=== PATIENT | female | born 1960 | race Caucasian/White ===

== ENCOUNTER 2019-05-24 09:12 | Day surgery (SDC) | payer OTHER ==
[~2019-05-24 09:12] MED LIST: BUPIVACAINE HCL 0.75% INJ/PF (7.5 MG/1 ML) 10 ML SDV OD PRN; CHONDR SU A NA/HYALUR INTRAOC KIT (SURGICARE) ONE; EPINEPHRINE INJ/PF 1 MG/1 ML AMPULE ONE; KETOROLAC TROMETHAMINE 0.45% 4 DROP/0.4 ML DROPERETTE OD PRN; LIDOCAINE 1% INJ-PF (10 MG/ML) 30 ML SDV ONE; LIDOCAINE 4% INJ/PF (40 MG/ML) 5 ML AMPUL OD PRN
[2019-05-24] MEDS ORDERED: MIDAZOLAM 2 MG/2 ML INJ ONE (09:36)
[2019-05-24] MEDS: TETRACAINE HCL 0.5% OPH SOLN 4 ML OD PRN ×3 (10:30→11:08)
[2019-05-24] MEDS: CYCLOPENTOLATE 0.2%/PHENYLEPHRINE 1% OPH SOLN 2 ML OD PRN ×3 (10:30→10:50)
[2019-05-24] MEDS: BESIFLOXACIN HCL 0.6% OPH SUSP 5 ML BOTTLE OD PRN ×4 (10:30→11:32)
[2019-05-24] MEDS: TROPICAMIDE 1% OPH SOLN 15 ML OD PRN ×3 (10:30→10:50)
[2019-05-24] MEDS: DORZOLAMIDE HCL 2%/TIMOLOL MALEAT 0.5% OPH SOLN 10 ML OD PRN ×2 (11:32)
--- NOTE | 2019-05-24 14:55 | Operative Report ---
Operative Report-[facility] Operative Report: DATE OF SURGERY: 05/24/2019 PREOPERATIVE DIAGNOSIS: CATARACT, RIGHT EYE. POSTOPERATIVE DIAGNOSIS: CATARACT, RIGHT EYE. PROCEDURE PERFORMED: PHACOEMULSIFICATION WITH POSTERIOR CHAMBER INTRAOCULAR LENS, RIGHT EYE. Intraocular Lens Model : ZCBOO 17.5 Total Phaco Time: 12.05 CDE SURGEON: MADELINE CALZADA MD ANESTHESIA: TOPICAL WITH MAC. INDICATIONS FOR SURGERY: Difficulty reading road signs and watching TV. PROCEDURE: The patient was brought to the Operating Room and placed on the operative table. Following tetracaine drops, topical anesthesia was administered. This consisted of instrument wipe pledgets soaked in a solution of 4% Xylocaine mixed with 0.75% Marcaine in a 1:2 ratio. A 2 x 1 cm pledget was placed in the superior fornix. A 1 x 1 cm pledget was placed in the inferior fornix. The eye was patched shut for 5 minutes. The patch was removed. The eye was sterilely prepped and draped in the usual manner. Lid speculum was placed in the eye. The pledgets were removed. 4-0 black silk sutures were placed around the superior and the inferior rectus muscles to be used as traction. A conjunctival peritomy was made at the 10 o'clock position. Hemostasis was obtained with bipolar cautery. A posterior limbal groove was created using a crescent knife and dissected anteriorly towards the cornea. A sharp point blade was used to create a paracentesis site at the 2 o'clock position. 0.2 cc non preserved Lidocaine was injected into the anterior chamber. A 2.4 mm keratome was used to enter the anterior chamber through the groove. Viscoelastic was injected into the anterior chamber. An anterior capsulotomy was performed using Utrata forceps in a capsulorrhexis fashion. Hydrodissection and hydrodelineation were performed. Phacoemulsification was performed in [id number] technique. Following this, the I/A unit was used to remove residual cortex. Viscoelastic was injected into the capsular bag. The Intraocular lens was placed in the capsular bag. The I/A unit was used to remove residual viscoelastic. The wound was seen to be watertight under high and low pressure, and no sutures were placed. The intraocular lens was well centered. The pressure was adjusted in the eye to normal pressure. The 4-0 black silk sutures and lid speculum were removed. The eye was shielded after Besivance and Cosopt drops were placed. The patient tolerated the procedure well and was sent to the Recovery Room in good condition.
== END 2019-05-24 12:17 | disposition home or self-care (01) ==
LOC: SC 09:12
PROVIDERS: ATTEND Ophthalmology
DX: H25.811 Combined forms of age-related cataract, right eye (principal)
CPT/HCPCS: 66984; V2632; J2250; J3490 ×5; J0171

== ENCOUNTER → 2019-07-14 | Day surgery (SDC) | payer OTHER ==
[~2019-07-14] MED LIST changes: -BUPIVACAINE HCL 0.75% INJ/PF (7.5 MG/1 ML) 10 ML SDV OD PRN; +BUPIVACAINE HCL 0.75% INJ/PF (7.5 MG/1 ML) 10 ML SDV OS PRN; +FENTANYL CITRATE INJ/PF 100 MCG/2 ML AMPUL ONE; -KETOROLAC TROMETHAMINE 0.45% 4 DROP/0.4 ML DROPERETTE OD PRN; +KETOROLAC TROMETHAMINE 0.45% 4 DROP/0.4 ML DROPERETTE OS PRN; -LIDOCAINE 4% INJ/PF (40 MG/ML) 5 ML AMPUL OD PRN; +LIDOCAINE 4% INJ/PF (40 MG/ML) 5 ML AMPUL OS PRN; +MIDAZOLAM 2 MG/2 ML INJ ONE
[2019-07-14] MEDS: TETRACAINE HCL 0.5% OPH SOLN 4 ML OS PRN ×2 (09:08→09:39)
[2019-07-14] MEDS: CYCLOPENTOLATE 0.2%/PHENYLEPHRINE 1% OPH SOLN 2 ML OS PRN ×3 (09:09→09:35)
[2019-07-14] MEDS: BESIFLOXACIN HCL 0.6% OPH SUSP 5 ML BOTTLE OS PRN ×4 (09:09→10:15)
[2019-07-14] MEDS: TROPICAMIDE 1% OPH SOLN 15 ML OS PRN ×3 (09:09→09:35)
[2019-07-14] MEDS: DORZOLAMIDE HCL 2%/TIMOLOL MALEAT 0.5% OPH SOLN 10 ML OS PRN ×2 (10:15)
--- NOTE | 2019-07-14 12:01 | Operative Report ---
Operative Report-[facility] Operative Report: DATE OF SURGERY: 07/14/2019 PREOPERATIVE DIAGNOSIS: CATARACT, LEFT EYE. POSTOPERATIVE DIAGNOSIS: CATARACT, LEFT EYE. PROCEDURE PERFORMED: PHACOEMULSIFICATION WITH POSTERIOR CHAMBER INTRAOCULAR LENS, LEFT EYE. Intraocular Lens Model : ZCBOO 19.0 Total Phaco Time: 8.22 CDE SURGEON: MADELINE CALZADA MD ANESTHESIA: TOPICAL WITH MAC. INDICATIONS FOR SURGERY: Difficultly driving at night PROCEDURE: The patient was brought to the Operating Room and placed on the operative table. Following tetracaine drops, topical anesthesia was administered. This consisted of instrument wipe pledgets soaked in a solution of 4% Xylocaine mixed with 0.75% Marcaine in a 1:2 ratio. A 2 x 1 cm pledget was placed in the superior fornix. A 1 x 1 cm pledget was placed in the inferior fornix. The eye was patched shut for 5 minutes. The patch was removed. The eye was sterilely prepped and draped in the usual manner. Lid speculum was placed in the eye. The pledgets were removed. 4-0 black silk sutures were placed around the superior and the inferior rectus muscles to be used as traction. A conjunctival peritomy was made at the 10 o'clock position. Hemostasis was obtained with bipolar cautery. A posterior limbal groove was created using a crescent knife and dissected anteriorly towards the cornea. A sharp point blade was used to create a paracentesis site at the 2 o'clock position. 0.2 cc non preserved Lidocaine was injected into the anterior chamber. A 2.4 mm keratome was used to enter the anterior chamber through the groove. Viscoelastic was injected into the anterior chamber. An anterior capsulotomy was performed using Utrata forceps in a capsulorrhexis fashion. Hydrodissection and hydrodelineation were performed. Phacoemulsification was performed in [id number] technique. Following this, the I/A unit was used to remove residual cortex. Viscoelastic was injected into the capsular bag. The Intraocular lens was placed in the capsular bag. The I/A unit was used to remove residual viscoelastic. The wound was seen to be watertight under high and low pressure, and no sutures were placed. The intraocular lens was well centered. The pressure was adjusted in the eye to normal pressure. The 4-0 black silk sutures and lid speculum were removed. The eye was shielded after Besivance,prednisolone, and Cosopt drops were placed. The patient tolerated the procedure well and was sent to the Recovery Room in good condition.
== END ==
LOC: SC 08:01
PROVIDERS: ATTEND Ophthalmology
DX: H25.812 Combined forms of age-related cataract, left eye (principal); Z96.1 Presence of intraocular lens; H17.89 Other corneal scars and opacities; K21.9 Gastro-esophageal reflux disease without esophagitis; Z79.899 Other long term (current) drug therapy; E11.9 Type 2 diabetes mellitus without complications; Z88.8 Allergy status to other drugs, medicaments and biological substances
CPT/HCPCS: 66984; V2632; J2250; J3490 ×5; J0171; J3010

== ENCOUNTER 2020-07-14 13:04 | Emergency (ER) | payer OTHER ==
[2020-07-14 13:22] VITALS: BP 102/59
--- NOTE | 2020-07-14 13:30 | ER Document Report ---
ED Medical Screen (RME) - General Stated Complaint: CHEST PAIN Time Seen by Provider: 07/14/20 13:25 Primary Care Provider: LEONEL FRAGOSO MD [Primary Care Provider] - Follow up as needed Notes: HPI: 60-year-old female history of high cholesterol presenting for an episode of sharp chest pain in the left chest that occurred early this morning lasted several minutes then went away. No radiation into the back neck or arm. No shortness of breath with this. Has had intermittent pain previously several months ago but did not speak with her primary care provider about that. Had a gastric bypass in [place] in 2018 no abdominal pain nausea vomiting. Patient reports her last stress test was approximately 10 years ago. She is pain-free at this time PHYSICAL EXAMINATION: EKG normal sinus rhythm without ectopy. Lung sounds are clear to auscultation with regular rate and rhythm. I have greeted and performed a rapid initial assessment of this patient. A comprehensive ED assessment and evaluation of the patient, analysis of test r esults and completion of medical decision making process will be conducted by an additional ED providers. Please note that clinical decision making for this patient was made during the 2019 pandemic of novel coronavirus which caused a significant strain on the healthcare system including at this particular facility. Criteria for admission discharge and level of care decisions as well as treatment decisions have necessarily changed TRAVEL OUTSIDE OF THE [place] IN LAST 30 DAYS: No - Related Data Allergies/Adverse Reactions: NSAIDS (Non-Steroidal Anti-Inflamma Adverse Reaction (Intermediate, Verified 07/13/19 10:02) STOMACH ULCERS lansoprazole [Lansoprazole] Adverse Reaction (Unknown, Verified 07/12/19 13:27) simvastatin [From Zocor] Adverse Reaction (Unknown, Verified 07/12/19 13:27) MUSCLE PAIN Past Medical History - Past Medical History Cardiac Medical History: Denies: Hx Coronary Artery Disease - HIGH CHOLESTEROL, Hx Heart Attack, Hx Hypertension Pulmonary Medical History: Denies: Hx Asthma, Hx Bronchitis, Hx COPD, Hx Pneumonia Neurological Medical History: Denies: Hx Cerebrovascular Accident, Hx Seizures GI Medical History: Denies: Hx Hepatitis, Hx Hiatal Hernia, Hx Ulcer Musculoskeltal Medical History: Denies Hx Arthritis Infectious Medical History: Denies: Hx Hepatitis Past Surgical History: Denies: Hx Mastectomy, Hx Open Heart Surgery, Hx Pacemaker - Immunizations Hx Diphtheria, Pertussis, Tetanus Vaccination: Yes Physical Exam - Vital signs Vitals: Temp Pulse Resp BP Pulse Ox 97.7 F 73 18 102/59 L 100 07/14/20 13:20 07/14/20 13:20 07/14/20 13:20 07/14/20 13:20 07/14/20 13:20 Course - Vital Signs Vital signs: Temp Pulse Resp BP Pulse Ox 97.7 F 73 18 102/59 L 100 07/14/20 13:20 07/14/20 13:20 07/14/20 13:20 07/14/20 13:20 07/14/20 13:20 Doctor's Discharge - Discharge Referrals: LEONEL FRAGOSO MD [Primary Care Provider] - Follow up as needed
--- NOTE | 2020-07-14 14:20 | RADIOLOGY REPORT (SQ) ---
EXAM DESCRIPTION: CHEST SINGLE VIEW IMAGES COMPLETED DATE/TIME: 07/14/2020 12:55 pm REASON FOR STUDY: chest pain COMPARISON: None. EXAM PARAMETERS: NUMBER OF VIEWS: One view. TECHNIQUE: Single frontal radiographic view of the chest acquired. RADIATION DOSE: NA LIMITATIONS: None. FINDINGS: LUNGS AND PLEURA: No opacities, masses or pneumothorax. No pleural effusion. MEDIASTINUM AND HILAR STRUCTURES: No masses. Contour normal. HEART AND VASCULAR STRUCTURES: Heart normal in size. Normal vasculature. BONES: No acute findings. HARDWARE: None in the chest. OTHER: No other significant finding. IMPRESSION: NO ACUTE RADIOGRAPHIC FINDING IN THE CHEST. TECHNICAL DOCUMENTATION: JOB ID: [id number] 2010 [employer]- All Rights Reserved Reading location - IP/workstation name: [email or web address]
[2020-07-14 14:33] LABS: ABSOLUTE EOSINOPHILS # (AUTO) 0.1 10^3/uL (0.0-0.6); ABSOLUTE LYMPHOCYTES (AUTO) 2.8 10^3/uL (0.5-4.7); ABSOLUTE MONOCYTES (AUTO) 0.6 10^3/uL (0.1-1.4); ABSOLUTE NEUT (AUTO) 3.3 10^3/uL (1.7-8.2); BASOPHILS % (AUTO) 0.4 % (0-2); EOSINOPHILS % (AUTO) 1.5 % (0-6); HEMATOCRIT 41.5 % (36.0-47.0); HEMOGLOBIN 14.3 g/dL (12.0-15.5); MEAN CORPUSCULAR HEMOGLOBIN 31.1 pg (27.0-33.4); MEAN CORPUSCULAR HGB CONC 34.6 g/dL (32.0-36.0); MEAN CORPUSCULAR VOLUME 90 fl (80-97); MONOCYTES % (AUTO) 8.8 % (3-13); PLATELET COUNT 274 10^3/uL (150-450); RED BLOOD COUNT 4.61 10^6/uL (3.72-5.28); SEGMENTED NEUTROPHILS % (AUTO) 48.3 % (42-78); TOTAL CELLS COUNTED % (AUTO) 100 %; WHITE BLOOD COUNT 6.9 10^3/uL (4.0-10.5)
[2020-07-14 14:39] LABS: ALBUMIN 4.4 g/dL (3.5-5.0); ALKALINE PHOSPHATASE 69 U/L (38-126); ANION GAP 2 (5-19); ASPARTATE AMINO TRANSFERASE 30 U/L (14-36); BILIRUBIN,DIRECT 0.1 mg/dL (0.0-0.4); BILIRUBIN,TOTAL 0.6 mg/dL (0.2-1.3); BLOOD UREA NITROGEN 31 mg/dL (7-20); CALCIUM 10.5 mg/dL (8.4-10.2); CARBON DIOXIDE 34 mmol/L (22-30); CHLORIDE 98 mmol/L (98-107); GLUCOSE 99 mg/dL (75-110); POTASSIUM 4.8 mmol/L (3.6-5.0); TOTAL PROTEIN 7.2 g/dL (6.3-8.2)
--- NOTE | 2020-07-14 16:04 | ER Document Report ---
ED Cardiac - General Chief Complaint: Chest Pain Stated Complaint: CHEST PAIN Time Seen by Provider: 07/14/20 13:25 Primary Care Provider: DIEGO BRISCOE MD [ACTIVE STAFF] - Follow up in 3-5 days LEONEL FRAGOSO MD [Primary Care Provider] - Follow up in 3-5 days TRAVEL OUTSIDE OF THE [place] IN LAST 30 DAYS: No - HPI Notes: Patient is a 60-year-old female with a past medical history of gastric bypass surgery who presents with chest pain. Patient states that chest pain occurred this morning. It lasted for several minutes. She laid down and it felt better. It occurred when she was just walking around the house. She described it as a midsternal pressure. No radiation to her back. No pain in her arms or her jaw. She denies any shortness of breath or pleuritic pain. No nausea or vomiting. No abdominal pain. No cough or fevers. She states she was recently diagnosed with mono and still has some leftover fatigue. She mentions the same episode happened a year ago and she never mentioned to her PCP. Non-smoker. Currently, she is pain-free. No recent periods of immobility. No leg swelling. No history of PE or DVT. - Related Data Allergies/Adverse Reactions: NSAIDS (Non-Steroidal Anti-Inflamma Adverse Reaction (Intermediate, Verified 07/13/19 10:02) STOMACH ULCERS lansoprazole [Lansoprazole] Adverse Reaction (Unknown, Verified 07/12/19 13:27) simvastatin [From Zocor] Adverse Reaction (Unknown, Verified 07/12/19 13:27) MUSCLE PAIN Past Medical History - General Information source: Patient, Relative - Social History Smoking Status: Never Smoker Frequency of alcohol use: Rare Drug Abuse: None Family History: CAD - Past Medical History Cardiac Medical History: Denies: Hx Coronary Artery Disease - HIGH CHOLESTEROL, Hx Heart Attack, Hx Hypertension Pulmonary Medical History: Denies: Hx Asthma, Hx Bronchitis, Hx COPD, Hx Pneumonia Neurological Medical History: Denies: Hx Cerebrovascular Accident, Hx Seizures GI Medical History: Denies: Hx Hepatitis, Hx Hiatal Hernia, Hx Ulcer Musculoskeletal Medical History: Denies Hx Arthritis Infectious Medical History: Denies: Hx Hepatitis Past Surgical History: Denies: Hx Mastectomy, Hx Open Heart Surgery, Hx Pacemaker - Immunizations Hx Diphtheria, Pertussis, Tetanus Vaccination: Yes Review of Systems - Review of Systems Notes: CONSTITUTIONAL: No fever or weight loss. No fatigue. SKIN: No rash. HENT: No congestion, ear pain, or sore throat. CARDIOVASCULAR: No edema. Positive for chest pain that has resolved. RESPIRATORY: No cough, shortness of breath, congestion, or wheezing. GASTROINTESTINAL: No abdominal pain, nausea, vomiting, bloody stools or diarrhea. GENITOURINARY: No dysuria. MUSCULOSKELETAL: No joint pain or swelling. LYMPHATIC: No swollen glands. NEUROLOGIC: No seizures. No headache, focal weakness or sensory changes. HEMATOLOGIC: No unusual bruising or bleeding. PSYCHIATRIC: No depression or anxiety. Physical Exam - Vital signs Vitals: Temp Pulse Resp BP Pulse Ox 97.7 F 73 18 102/59 L 100 07/14/20 13:20 07/14/20 13:20 07/14/20 13:20 07/14/20 13:20 07/14/20 13:20 - General General appearance: Appears well In distress: None Notes: VITAL SIGNS: Within normal limits. GENERAL: No acute distress, non-toxic appearance. HEAD: Normal with no signs of head trauma. EYES: Conjunctiva normal, no discharge. EARS: Hearing grossly intact. NOSE: Normal. NECK: Normal range of motion, no tenderness, supple, no lymphadenopathy, No adenopathy, no JVD. CHEST: Clear breath sounds bilaterally. CARDIAC: Regular rate and rhythm. S1 and S2, without murmurs, gallops, or rubs. VASCULAR: No Edema. Strong radial pulses. ABDOMEN: Normal. MUSCULOSKELETAL: Good range of motion of all major joints. Extremities without clubbing, cyanosis or edema. NEUROLOGICAL: Alert and oriented x 3. No focal sensory or strength deficits. Speech normal. Follows commands appropriately. PSYCHIATRIC: Normal Affect, judgement and mood. SKIN: Normal appearance with no rashes or lesions. Course - Re-evaluation Re-evalutation: 07/14/20 16:03 Patient appears well on exam. She is pain-free. We will obtain 2 troponins and a cardiac work-up. Likely, she will be able to follow-up outpatient with cardiology and her PCP. She states that she is unable to take aspirin. Heart Score is 3. Patient had 2 - troponins. Her EKG is nondiagnostic. Patient is not having any pain. I gave her for cardiology follow-up. Patient is very agreeable to this. She was given strict return precautions. 07/14/20 23:45 - Vital Signs Vital signs: Temp Pulse Resp BP Pulse Ox 97.7 F 73 18 102/59 L 100 07/14/20 13:20 07/14/20 13:20 07/14/20 13:20 07/14/20 13:20 07/14/20 13:20 - Laboratory Results Result Diagrams: 07/14/20 14:00 07/14/20 14:00 Laboratory Results Interpreted: 07/14/20 14:00 Sodium 133.9 L Carbon Dioxide 34 H Anion Gap 2 L BUN 31 H Calcium 10.5 H Critical Laboratory Results Reviewed: No Critical Results - Radiology Results Critical Radiology Results Reviewed: No Critical Results - EKG Interpretation by Me EKG shows normal: Sinus rhythm Rate: Normal Rhythm: NSR When compared to previous EKG there are: Previous EKG unavailable Additional EKG results interpreted by me: 07/14/20 16:08 Sinus rhythm at a rate of 69. QTc 416. No acute ST changes. Previous EKG unavailable. Discharge - Discharge Clinical Impression: Chest pain Qualifiers: Chest pain type: other chest pain Qualified Code(s): R07.89 - Other chest pain Condition: Stable Disposition: HOME, SELF-CARE Additional Instructions: Your work-up today is reassuring. Please follow-up with your family doctor and cardiology. Return to the ER immediately for any return of symptoms, shortness of breath, nausea, any other concerning signs. Referrals: LEONEL FRAGOSO MD [Primary Care Provider] - Follow up in 3-5 days DIEGO BRISCOE MD [ACTIVE STAFF] - Follow up in 3-5 days
--- NOTE | 2020-07-14 22:24 | EKG REPORT ---
SEVERITY:- NORMAL ECG - SINUS RHYTHM : Confirmed by: Patrick Cervantes MD 14-Jul-2020 22:24:20
--- OUTSIDE RECORDS SUMMARY | 2020-07-17 10:33 | XMS REPORT ---
:1960 [facility] Address [facility] [address] [place] [id number] Care Team Providers Name Role Phone Yeyo NÚÑEZ Attending Clinician Unavailable Allergies, Adverse Reactions, Alerts This patient has no known allergies or adverse reactions. Medications Ordered Filled Start Stop Current Ordering Indication Dosage Frequency Signature Comments Components Medication Medication Date Date Medication? Clinician (SIG) Name Name ARIPiprazol Yes ARIPiprazo e 5 MG Oral le 5 MG Tablet Oral Tablet Refills: 0 Active traZODone Yes traZODone HCl - 50 MG HCl - 50 Oral Tablet MG Oral Tablet Refills: 0 Active Myrbetriq Yes Myrbetriq 25 MG Oral 25 MG Oral Tablet Tablet Extended Extended Release 24 Release 24 Hour Hour Refills: 0 Active Imvexxy 10 Yes Imvexxy 10 MCG INST MCG INST Refills: 0 Active Multivitami Yes Multivitam ns Oral ins Oral Capsule Capsule Refills: 0 Active Calcium + Yes Calcium + D3 TABS D3 TABS Refills: 0 Active Magnesium Yes Magnesium CAPS CAPS Refills: 0 Active Vitamin B12 Yes Vitamin TABS B12 TABS Refills: 0 Active Probiotic Yes Probiotic CAPS CAPS Refills: 0 Active Iron TABS Yes Iron TABS Refills: 0 Active Vitamin C Yes Vitamin C TABS TABS Refills: 0 Active Red Yeast Yes Red Yeast Rice CAPS Rice CAPS Refills: 0 Active B-50 Yes B-50 Complex Complex TABS TABS Refills: 0 Active Napoleon-3 Yes Napoleon-3 Fish Oil Fish Oil CAPS CAPS Refills: 0 Active DULoxetine Yes DULoxetine HCl - 60 MG HCl - 60 Oral MG Oral Capsule Capsule Delayed Delayed Release Release Particles Particles Refills: 0 Active buPROPion Yes buPROPion HCl ER (SR) HCl ER 150 MG Oral (SR) 150 Tablet MG Oral Extended Tablet Release 12 Extended Hour Release 12 Hour Refills: 0 Active clonazePAM Yes clonazePAM 0.5 MG Oral 0.5 MG Tablet Oral Tablet Refills: 0 Active Problems Condition Condition Condition Status Onset Resolution Last Treatin g Comments Name Details Category Date Date Treatment Clinician Date 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 Encounters Start End Encounter Admission Attending Care Care Encounter Date/Time Date/Time Type Type Clinicians Facility Department ID 2020-04-11 2020-04-11 Appointment [facility] [id number] 10:00:00 11:47:10 ; Suhail [facility] MD Family History Family Member Diagnosis Comments Start Date Stop Date Mother Family history of malignant neoplasm Father Family history of emphysema Immunizations Ordered Immunization Filled Immunization Date Status Commen ts Refusal Reason Name Name Influenza 2012-07-16 Completed 10:50:00 Tdap (Adacel) 2011-04-16 Completed 10:40:00 Influenza 2011-04-16 Completed 10:39:00 Influenza 2010-04-16 Completed 00:00:00 Pneumococcal 2010-04-16 Completed polysaccharide 00:00:00 vaccine, 23 valent Influenza A (H1N1) 2009-05-14 Completed Monoval Vac SUSP 00:00:00 Influenza 2008-05-12 Completed 00:00:00 Influenza 2007-04-06 Completed 00:00:00 Social History Smoking Status Start Date Stop Date Never smoked tobacco (finding) Vital Signs Vital Name Observation Time Observation Value Comments Systolic blood pressure 2020-04-11 10:11:00 122 mm[Hg] Diastolic blood pressure 2020-04-11 10:11:00 64 mm[Hg] Body height 2020-04-11 10:11:00 65 [in_us] Weight 2020-04-11 10:11:00 157 [lb_av] Body mass index (BMI) [Ratio] 2020-04-11 10:11:00 26.13 kg/m2 Hospital Discharge Instructions NameDatesDetailsInstructions not documented
== END 2020-07-14 17:52 | disposition home or self-care (01) ==
LOC: ER 13:04
DX: R07.89 Other chest pain (principal); Z98.84 Bariatric surgery status
CPT/HCPCS: 36415; 71045; 80053; 84484; 85025; 93005; 93010; 99285